=== PATIENT | male | born 1970 | race Caucasian/White ===

== ENCOUNTER 2020-08-26 13:41 | Emergency (ER) | payer MEDICAID ==
[~2020-08-26] VITALS: Ht 154.9 cm; Wt 49.2 kg
[2020-08-26] MEDS ORDERED: ACETAMINOPHEN 325MG TABLET PO STA (14:20)
[2020-08-26] MEDS ORDERED: IBUP-2029 MT (15:53)
[2020-08-26 16:16] VITALS: BP 145/89
== END 2020-08-26 16:39 | disposition home or self-care (01) ==
LOC: ER 14:01
DX: S00.83XA Contusion of other part of head, initial encounter (principal); I10 Essential (primary) hypertension; Y08.89XA Assault by other specified means, initial encounter; Y93.89 Activity, other specified; Y92.89 Other specified places as the place of occurrence of the external cause; Y99.8 Other external cause status
CPT/HCPCS: 99284